=== PATIENT | female | born 1980 | race American Indian/Alaskan Native ===

== ENCOUNTER 2019-09-13 13:43 | Emergency (ER) | payer OTHER, MEDICAID, SELFPAY ==
[2019-09-13 13:53] VITALS: BP 138/82; PULSE 83; RESP 14; TEMP 36.6; O2SAT 100
--- NOTE | 2019-09-13 14:28 | ED_ITS ---
HPI - Back Pain/Injury <ABHIJIT Quiles - Last Filed: 09/13/19 18:47> General Chief Complaint: Back Pain/Injury Stated Complaint: Thinks Kidney Infection, Lower Back Pain Time Seen by Provider: 09/13/19 14:14 Source: patient History of Present Illness HPI Narrative: 39yo female presents to the emergency department for back pain over the past week. She states initially started on her right side, she started her menstrual cycle which lasted about 2 days. Once the ended, the pain has moved to the left side and she is worried about a kidney stone. She denies any history of kidney stones in the past. She does report she has arthritis in her back but states this pain feels different. She denies any fevers, chills, dysuria, vaginal discharge, abdominal pain, nausea, vomiting, diarrhea, or any other concerns. Related Data Allergies Allergy/AdvReac Type Severity Reaction Status Date / Time No Known Drug Allergies Allergy Verified 06/29/17 22:42 Review of Systems <ABHIJIT Quiles - Last Filed: 09/13/19 18:47> Review of Systems Narrative: REVIEW OF SYSTEMS: GENERAL: Denies fever, chills, malaise, or wt. loss. HENT: No head trauma. EYES: No loss of vision, double vision, eye pain, or irritation. CARDIOVASCULAR: No chest pain, palpitations, or orthopnea. RESPIRATORY: No shortness of breath or cough. GASTROINTESTINAL: Denies abdominal pain. GENITOURINARY: Reports back pain, see HPI. MUSCULOSKELETAL: No pain, weakness, or trauma. INTEGUMENTARY: No rash, lesions, or pruritus. NEURO: No numbness, tingling, memory loss, confusion, or headaches. PSYCH: No behavior or mood changes. Patient History <ABHIJIT Quiles - Last Filed: 09/13/19 18:47> Medical History No significant medical problems (Acute) Social History Smoking Status: Current every day smoker Smoking Status: Current every day smoker alcohol intake frequency: holidays/special occasions only Substance Use Type: does not use Exam <ABHIJIT Quiles - Last Filed: 09/13/19 18:47> Initial Vital Signs Initial Vital Signs: Vital Signs Temperature 97.8 F 09/13/19 13:53 Pulse Rate 83 09/13/19 13:53 Respiratory Rate 14 09/13/19 13:53 Blood Pressure 138/82 09/13/19 13:53 Pulse Oximetry 100 09/13/19 13:53 PHYSICAL EXAMINATION: GENERAL: Well groomed, alert, and cooperative. Answers questions promptly and appropriately. Vital signs noted. HENT: Normocephalic, atraumatic. Hearing intact. Oral mucosa is pink and moist. EYES: Conjunctiva pink, sclera white, no periorbital swelling. CARDIOVASCULAR: S1 and S2 sounds normal. Regular rate and rhythm, no murmurs, clicks, or bruits. No pedal edema. RESPIRATORY: Normal respiratory rate, trachea midline, airway patent. No stridor, nasal flaring or accessory muscle use. Lungs are clear in all [place] without wheeze, rhonchi, or crackles. GASTROINTESTINAL: Bowel sounds normoactive. Abdomen is soft and non-tender. No organomegaly, no palpable masses. GENITALURINARY: Left flank tenderness. MUSCULOSKELETAL: Normal gait and coordination. Equal tone and mass bilaterally. EXTREMITIES: CMS intact, no pedal edema. SKIN: Warm, dry, soft, appropriate color for ethnicity. No lesions, rashes, or wounds to visualized areas. NEURO: Alert and Oriented X 3. Good coordination. No ataxia, or sensory deficits, or cognitive issues. PSYCH: Appropriate affect and mood. <Vikas Rose MD - Last Filed: 09/13/19 18:53> Initial Vital Signs Initial Vital Signs: Vital Signs Temperature 97.8 F 09/13/19 13:53 Pulse Rate 83 09/13/19 13:53 Respiratory Rate 14 09/13/19 13:53 Blood Pressure 138/82 09/13/19 13:53 Pulse Oximetry 100 09/13/19 13:53 Course <ABHIJIT Quiles - Last Filed: 09/13/19 18:47> Course Course Narrative: Patient reports improvement after Toradol administration. Orders Ordered: ED Orders 09/13/19 14:10 Urine Microscopic Stat 09/13/19 14:26 CT kidney ureter bladder (KUB) Stat 09/13/19 15:10 Complete Blood Count AUTO DIFF Stat Comprehensive Metabolic Panel Stat Discontinued Medications Sodium Chloride (Normal Saline 0.9%) 1,000 mls @ 1,000 mls/hr IV BOLUS ONE Stop: 09/13/19 15:25 Last Infusion: 09/13/19 16:10 Dose: 0 mls/hr Documented by: Admin: 09/13/19 15:02 Dose: 1,000 mls/hr Documented by: MILA Ketorolac Tromethamine (Toradol) 30 mg IV NOW ONE Stop: 09/13/19 14:27 Last Admin: 09/13/19 15:01 Dose: 30 mg Documented by: MILA Vital Signs Vital signs: Vital Signs - 8 hr 09/13/19 13:53 09/13/19 16:07 Temperature 97.8 F Pulse Rate 83 58 L Respiratory Rate 14 14 Blood Pressure 138/82 121/75 Pulse Oximetry 100 100 <Vikas Rose MD - Last Filed: 09/13/19 18:53> Orders Ordered: ED Orders 09/13/19 14:10 Urine Microscopic Stat 09/13/19 14:26 CT kidney ureter bladder (KUB) Stat 09/13/19 15:10 Complete Blood Count AUTO DIFF Stat Comprehensive Metabolic Panel Stat Discontinued Medications Sodium Chloride (Normal Saline 0.9%) 1,000 mls @ 1,000 mls/hr IV BOLUS ONE Stop: 09/13/19 15:25 Last Infusion: 09/13/19 16:10 Dose: 0 mls/hr Documented by: Admin: 09/13/19 15:02 Dose: 1,000 mls/hr Documented by: MILA Ketorolac Tromethamine (Toradol) 30 mg IV NOW ONE Stop: 09/13/19 14:27 Last Admin: 09/13/19 15:01 Dose: 30 mg Documented by: MILA Vital Signs Vital signs: Vital Signs - 8 hr 09/13/19 13:53 09/13/19 16:07 Temperature 97.8 F Pulse Rate 83 58 L Respiratory Rate 14 14 Blood Pressure 138/82 121/75 Pulse Oximetry 100 100 MDM - Back Pain/Injury <ABHIJIT Quiles - Last Filed: 09/13/19 18:47> Medical Records Attestation: I reviewed the patient's medical records. Lab Data Attestation: I reviewed the patient's lab results. Result diagrams: 09/13/19 15:10 09/13/19 15:10 Labs: Lab Results 09/13/19 09/13/19 09/13/19 Range/Units 14:10 15:10 15:10 WBC 7.5 (4.5-11.0) X10^3/uL RBC 4.53 (4.0-5.2) X10^6/uL Hgb 14.1 (12.0-16.0) g/dL Hct 41.4 (36-46) % MCV 91.5 (80-100) fL MCH 31.3 (26-34) PG MCHC 34.2 (30-36) % RDW 13.0 (11.6-14.8) % Plt Count 258 (150-400) X10^3/uL Neut % (Auto) 59.1 (50-75) % Lymph % (Auto) 31.7 (25-40) % [place] % (Auto) 6.4 (3-14) % Eos % (Auto) 2.0 (2-4) % Baso % (Auto) 0.8 (0-2) % Neut # (Auto) 4400 (3388-5311) /uL Lymph # (Auto) 2400 (0802-7901) /uL [place] # (Auto) 500 (0-900) /uL Eos # (Auto) 100 (0-450) /uL Baso # (Auto) 100 (0-100) /uL Sodium 136 L (137-145) mmol/L Potassium 4.1 (3.4-5.1) mmol/L Chloride 107 (98-107) mmol/L Carbon Dioxide 22 (22-32) mmol/L BUN 12 (7-17) mg/dL Creatinine 0.70 (0.52-1.04) mg/dL Estimated GFR > 60.0 (>60) mL/min BUN/Creatinine Ratio 17.1 (6-22) Glucose 97 (70-100) mg/dL Calcium 9.1 (8.4-10.2) mg/dL Total Bilirubin 0.5 (0.2-1.3) mg/dL AST 22 (14-36) IU/L ALT 24 (<35) IU/L Alkaline Phosphatase 61 (38-126) U/L Total Protein 7.4 (6.3-8.2) g/dL Albumin 4.2 (3.5-5.0) g/dL Globulin 3.2 (1.7-4.1) g/dL Albumin/Globulin Ratio 1.3 (1.0-2.8) Urine RBC 1-5/hpf (0-5/HPF) Urine WBC None seen (0-5/HPF) Ur Squamous Epith Cells None seen (0-5/HPF) Urine Bacteria None seen (None) Ur Culture Indicated? Cult not indicated Point of Care Testing Test Results Negative Urine Dip Bedside Urine Glucose Negative Bedside Urine Bilirubin - Negative Bedside Urine Ketone - Negative Urine Specific [place] 1.010 Bedside Urine Occult Blood + Bedside Urine pH 6.0 Bedside Urine Protein - Negative Bedside Urine Urobilinogen - Negative Bedside Urine Nitrite - Negative Bedside Urine Leukocytes - Negative Esterase Imaging Data CT KUB: Radiologist's Impression: [address] [address] [address] Scan Report Signed Patient: Tomasa Martines RaJackelineR#: [id number] : 1980Acct:[id number] Age/Sex: 39 / FDate of Service: 09/13/19 Loc: ED Accession Number: [id number] Procedure: CT kidney ureter bladder (KUB) Ordering Provider: Amanda Pimentel PROCEDURE: CT KIDNEY URETER BLADDER (KUB) INDICATIONS: L flank pain, r/o kidney stone TECHNIQUE: Noncontrast 5 mm thick sections acquired from the diaphragms to the symphysis. 5 mm thick coronal and sagittal reformats were then performed. For radiation dose reduction, the following was used: automated exposure control, adjustment of mA and/or kV according to patient size. COMPARISON: None. FINDINGS: Image quality: Excellent. Lung bases: Lung bases are clear. Heart size is normal. Urinary system: Both kidneys are normal in size. No kidney stones. No hydronephrosis or perinephric fat stranding. Both ureters appear non-dilated throughout their expected courses. Bladder wall thickness is normal; no calcified bladder stones. Other solid organs: Liver is normal in size. Gallbladder is not enlarged or inflamed. Pancreas is normal in contours. Spleen is normal in size. No adrenal nodules. Peritoneum and bowel: The bowel loops are nondilated. The appendix is well visualized and normal. An expected amount of stool is seen within the colon. No free fluid, loculated fluid collection, or free air is evident. There is a small fat containing periumbilical hernia. Nodes and vessels: No retroperitoneal or mesenteric adenopathy by size criteria. Aorta and inferior vena cava are normal in caliber. Bones: No acute fracture or suspicious osseous lesion is evident. There appear to be moderate degenerative changes of the lower lumbar spine. Other pelvic soft tissues: No free pelvic fluid. No inguinal hernias or adenopathy. An intrauterine contraceptive device is positioned within the uterus. There is a s mall right ovarian cyst identified that measures up to approximately 2.5 cm, but not well characterized. The left ovary is not enlarged or adequately evaluated. IMPRESSION: 1. No obstructing or nonobstructing renal or ureteral calculi. 2. Small right ovarian cyst. 3. Normal appendix. 4. No bowel obstruction. Dictated by: Fransisco Pal M.D. on 09/13/2019 at 13:48 Approved by: Fransisco Pal M.D. on 09/13/2019 at 13:56 MDM Narrative Medical decision making narrative: 39-year-old female presenting to the emergency department for left flank pain. Differential includes ovarian cyst versus muscle strain. Patient did later report upon further evaluation that she has been driving for the past 2 days which may have contributed to back pain, she does have chronic back pain as well. Ovarian cysts seen on CT. No signs of renal calculi noted on imaging. Patient did have a small amount of blood in the urine, she was not having any urinary symptoms such as dysuria, fevers, or bladder irritation, thus, urine was sent for culture, she was notified she will receive a call in 1-2 days if bacteria is present on the culture. Patient was hemodynamically stable, well-appearing. She was encouraged to follow up with her PCP in ob/gyn nurse for further evaluation and treatment if symptoms continue. Less concern for acute abdominal etiology due to lack of findings on CT, lack of abdominal pain, no vomiting, and lack of systemic symptoms. Return precautions given for new or worsening symptoms. Patient agreed to plan of care verbalized understanding. She was offered muscle relaxers, declined at this time. <Vikas Rose MD - Last Filed: 09/13/19 18:53> Lab Data Labs: Lab Results 09/13/19 09/13/19 09/13/19 Range/Units 14:10 15:10 15:10 WBC 7.5 (4.5-11.0) X10^3/uL RBC 4.53 (4.0-5.2) X10^6/uL Hgb 14.1 (12.0-16.0) g/dL Hct 41.4 (36-46) % MCV 91.5 (80-100) fL MCH 31.3 (26-34) PG MCHC 34.2 (30-36) % RDW 13.0 (11.6-14.8) % Plt Count 258 (150-400) X10^3/uL Neut % (Auto) 59.1 (50-75) % Lymph % (Auto) 31.7 (25-40) % [place] % (Auto) 6.4 (3-14) % Eos % (Auto) 2.0 (2-4) % Baso % (Auto) 0.8 (0-2) % Neut # (Auto) 4400 (9081-2655) /uL Lymph # (Auto) 2400 (4763-2292) /uL [place] # (Auto) 500 (0-900) /uL Eos # (Auto) 100 (0-450) /uL Baso # (Auto) 100 (0-100) /uL Sodium 136 L (137-145) mmol/L Potassium 4.1 (3.4-5.1) mmol/L Chloride 107 (98-107) mmol/L Carbon Dioxide 22 (22-32) mmol/L BUN 12 (7-17) mg/dL Creatinine 0.70 (0.52-1.04) mg/dL Estimated GFR > 60.0 (>60) mL/min BUN/Creatinine Ratio 17.1 (6-22) Glucose 97 (70-100) mg/dL Calcium 9.1 (8.4-10.2) mg/dL Total Bilirubin 0.5 (0.2-1.3) mg/dL AST 22 (14-36) IU/L ALT 24 (<35) IU/L Alkaline Phosphatase 61 (38-126) U/L Total Protein 7.4 (6.3-8.2) g/dL Albumin 4.2 (3.5-5.0) g/dL Globulin 3.2 (1.7-4.1) g/dL Albumin/Globulin Ratio 1.3 (1.0-2.8) Urine RBC 1-5/hpf (0-5/HPF) Urine WBC None seen (0-5/HPF) Ur Squamous Epith Cells None seen (0-5/HPF) Urine Bacteria None seen (None) Ur Culture Indicated? Cult not indicated Point of Care Testing Test Results Negative Urine Dip Bedside Urine Glucose Negative Bedside Urine Bilirubin - Negative Bedside Urine Ketone - Negative Urine Specific [place] 1.010 Bedside Urine Occult Blood + Bedside Urine pH 6.0 Bedside Urine Protein - Negative Bedside Urine Urobilinogen - Negative Bedside Urine Nitrite - Negative Bedside Urine Leukocytes - Negative Esterase Discharge Plan Departure Patient Disposition: Home Clinical Impression: Back pain Qualifiers: Back pain location: low back pain Chronicity: unspecified Back pain laterality: left Sciatica presence: without sciatica Qualified Code(s): M54.5 - Low back pain Discharge Date/Time: 09/13/19 16:12 Instructions: DI for Low Back Pain Activity Restrictions/Additional Instructions: Thank you for entrusting me with your care today. As discussed, your CT is negative for any kidney stones, there is a small right ovarian cyst noted. I suspect your back pain may be caused by muscle strain and spasm. I recommend using ibuprofen as needed for pain, heat, gentle stretches, and going for slow walks to help relieve muscle tension. Please follow-up within your primary care provider in 1-2 weeks for further evaluation if symptoms continue. Please follow-up with your [employer] IN[employer]CTOR for further evaluation and treatment of ovarian cyst if symptoms continue. Return to the emergency department for any new or worsening symptoms such as severe pain, chest pain, shortness of breath, syncope, or any other concerns
[2019-09-13 14:32] LABS: Bacteria Urine None Seen; WBC Urine None Seen (0-5/HPF)
[2019-09-13] MEDS: KETOROLAC 60 MG/2 ML VIAL 30 MG IV (15:01)
[2019-09-13] MEDS: SODIUM CHLORIDE 0.9% 1,000 ML 1000 ML IV (15:02)
[2019-09-13 15:03] LABS: Culture Indicated Urine Cult Not Indicated; RBC Urine 1-5/HPF (0-5/HPF); Squamous Epithelial Cell Urine None Seen (0-5/HPF)
[2019-09-13 15:14] LABS: Add Manual Diff / Slide Review NO; Basophils Absolute Auto 100 /uL (0-100); Basophils Percent Auto 0.8 % (0-2); Eosinophils Absolute Auto 100 /uL (0-450); Hematocrit 41.4 % (36-46); Hemoglobin 14.1 g/dL (12.0-16.0); Lymphocytes Absolute Auto 2400 /uL (1100-4500); Lymphocytes Percent Auto 31.7 % (25-40); Mean Corpuscular HGB Conc 34.2 % (30-36); Mean Corpuscular Hemoglobin 31.3 PG (26-34); Mean Corpuscular Volume 91.5 fL (80-100); Monocytes Absolute Auto 500 /uL (0-900); Monocytes Percent Auto 6.4 % (3-14); Neutrophils Absolute Auto 4400 /uL (1500-7000); Neutrophils Percent Auto 59.1 % (50-75); Platelet Count 258 X10^3/uL (150-400); Red Blood Cell Count 4.53 X10^6/uL (4.0-5.2); White Blood Cell Count 7.5 X10^3/uL (4.5-11.0)
[2019-09-13 15:26] LABS: Alanine Aminotransferase 24 IU/L (<35); Albumin 4.2 g/dL (3.5-5.0); Albumin Globulin Ratio 1.3 (1.0-2.8); Alkaline Phosphatase 61 U/L (38-126); Aspartate Aminotransferase 22 IU/L (14-36); BUN Creatinine Ratio 17.1 (6-22); Bilirubin Total 0.5 mg/dL (0.2-1.3); Blood Urea Nitrogen 12 mg/dL (7-17); Calcium 9.1 mg/dL (8.4-10.2); Carbon Dioxide 22 mmol/L (22-32); Chloride 107 mmol/L (98-107); Estimated Glomerular Filt Rate > 60.0 mL/min (>60); Globulin 3.2 g/dL (1.7-4.1); Glucose 97 mg/dL (70-100); HEMOLYSIS < 15 (0-50); Potassium 4.1 mmol/L (3.4-5.1); Sodium 136 mmol/L (137-145); Total Protein 7.4 g/dL (6.3-8.2)
[2019-09-13 16:07] VITALS: BP 121/75; PULSE 58; RESP 14; O2SAT 100
== END 2019-09-13 16:12 | disposition home or self-care (01) ==
PROVIDERS: Emergency Medicine; Emergency Provider Nurse Practitioner
DX: M54.5 Low back pain (principal); N83.201 Unspecified ovarian cyst, right side; R31.9 Hematuria, unspecified
CPT/HCPCS: 36415; 74176; 80053; 81003; 81015; 81025; 85025; 96361; 96374; 99284; J1885

== ENCOUNTER 2019-09-25 20:18 | Emergency (ER) | payer MEDICAID, OTHER, SELFPAY ==
[2019-09-25 20:45] VITALS: BP 124/74; PULSE 72; RESP 18; TEMP 37; O2SAT 100; BMI 33.5
[2019-09-25 22:21] VITALS: BP 113/64; PULSE 60; O2SAT 100
[2019-09-25 22:30] VITALS: BP 121/76; PULSE 58; RESP 15; O2SAT 100
--- NOTE | 2019-09-25 22:34 | ED_ITS ---
HPI - Abdominal Pain General Chief Complaint: Abdominal Pain Stated Complaint: thinks ovarian cyst Time Seen by Provider: 09/25/19 21:20 Source: patient Mode of arrival: Family Vehicle Limitations: no limitations History of Present Illness HPI narrative: 39F daily smoker with history of UTIs and SI joint dysfunction presents with a few weeks of constant pain in lower pelvis. Her pain seems to improve when standing and worsens when sitting. She denies other provocation or palliation nor radiation. She's had no dysuria, frequency, or urgency. She denies vaginal bleeding or discharge. She recently had her IUD removed due to concern for it's possible contribution to the pain. She's had no runny nose, sore throat, chest pain or cough. She denies fever or chills. MD complaint: abdominal pain Onset (ago): week(s) Pain Consistency: constant Location: suprapubic Severity: moderate Quality: cramping Radiation: none Related Data Patient : No Previous Rx's Medication Instructions Recorded ketorolac 10 mg PO TID PRN #15 tab 09/25/19 Allergies Allergy/AdvReac Type Severity Reaction Status Date / Time No Known Drug Allergies Allergy Verified 09/25/19 20:52 Review of Systems Constitutional Constitutional: Denies chills, Denies fatigue, Denies fever(s), Denies frequent falls, Denies lethargy and Denies weakness Eyes Eyes: Denies change in vision, Denies eye discharge, Denies irritation and Denies loss of vision ENT Ears, Nose, Mouth, and Throat: Denies change in voice, Denies dizziness, Denies neck pain, Denies sore throat and Denies throat swelling Cardiovascular Cardiovascular: Denies chest pain, Denies irregular heart rhythm, Denies light headedness, Denies palpitations, Denies dyspnea, Denies dyspnea on exertion and Denies orthopnea Respiratory Respiratory: Denies cough, Denies dyspnea, Denies dyspnea on exertion and Denies wheezing Gastrointestinal Gastrointestinal: Denies abdominal pain, Denies change in bowel habits, Denies diarrhea, Denies nausea and Denies vomiting Genitourinary Comments: suprapubic pain Musculoskeletal Musculoskeletal: Denies neck pain and Denies numbness Integumentary/Breasts Skin/Breast: Denies pruritus, Denies erythema, Denies rash and Denies wounds Neurologic Neurologic: Denies behavioral changes, Denies confusion, Denies dizziness, Denies frequent falls, Denies loss of vision, Denies numbness and Denies weakness Psychiatric Psychiatric: Denies anxiety, Denies behavioral changes, Denies confusion, Denies depression, Denies homicidal ideation and Denies suicidal ideation Endocrine Endocrine: Denies fatigue, Denies flushing and Denies palpitations Hematologic/Lymphatic Hematologic/Lymphatic: Denies easy bruising Allergic/Immunologic Allergic/Immunologic: Denies urticaria, Denies throat swelling and Denies wheezing Patient History Medical History No significant medical problems (Acute) Social History Smoking Status: Current every day smoker Smoking Status: Current every day smoker tobacco type: cigarettes alcohol intake frequency: holidays/special occasions only Substance Use Type: does not use Exam Narrative Exam Narrative: GENERAL: [39] year old patient appears stated age. Well- nourished, well-developed patient, in mild distress. HEAD: Atraumatic. Normocephalic. EYES: Pupils equal round and reactive. Extraocular motions intact. No scleral icterus. No injection or drainage. ENT: Nose without bleeding, purulent drainage. Throat without erythema, tonsillar hypertrophy or exudate. Airway patent. NECK: Trachea midline. Non tender CARDIOVASCULAR: Regular rate and rhythm without murmurs, gallops, or rubs. RESPIRATORY: Clear to auscultation. Breath sounds equal bilaterally. No wheezes, rales, or rhonchi. GASTROINTESTINAL: Abdomen soft, tender in the suprapubic region, nondistended. EXTREMITIES: No edema or joint tenderness. BACK: Nontender without deformity or crepitance. No flank tenderness. NEURO: AOx3. SKIN: No rash or erythema of visible areas Initial Vital Signs Initial Vital Signs: Vital Signs Temperature 98.6 F 09/25/19 20:45 Pulse Rate 72 09/25/19 20:45 Respiratory Rate 18 09/25/19 20:45 Blood Pressure 124/74 09/25/19 20:45 Pulse Oximetry 100 09/25/19 20:45 Course Orders Ordered: ED Orders 09/25/19 22:36 Complete Blood Count AUTO DIFF Stat Comprehensive Metabolic Panel Stat Lipase Stat 09/25/19 22:54 US pelvic limited Stat 09/25/19 23:05 Test Urine Stat Urine Culture Stat Urine Microscopic Stat Discontinued Medications Hydrocodone Bitart/Acetaminophen (Vicodin 5/325 Prepack) 1 bottle MISC SEEINSTR ONE Stop: 09/25/19 23:57 Last Admin: 09/26/19 00:01 Dose: 1 bottle Documented by: YUE Sodium Chloride (Normal Saline 0.9%) 1,000 mls @ 150 mls/hr IV CONT SANTA Last Infusion: 09/26/19 00:02 Dose: 0 mls/hr Documented by: Admin: 09/25/19 22:50 Dose: 150 mls/hr Documented by: ALETA Ketorolac Tromethamine (Toradol) 15 mg IV NOW ONE Stop: 09/25/19 23:57 Last Admin: 09/26/19 00:01 Dose: 15 mg Documented by: YUE Vital Signs Vital signs: Vital Signs - 8 hr 09/25/19 20:45 09/25/19 22:21 09/25/19 22:30 Temperature 98.6 F Pulse Rate 72 60 58 L Respiratory Rate 18 15 Blood Pressure 124/74 113/64 121/76 Pulse Oximetry 100 100 100 09/25/19 23:00 09/25/19 23:30 09/26/19 00:00 Temperature Pulse Rate 58 L 70 60 Respiratory Rate 25 H 49 H 18 Blood Pressure Pulse Oximetry 100 100 MDM - Abdominal Pain Lab Data Result diagrams: 09/25/19 22:36 09/25/19 22:36 Labs: Lab Results 09/25/19 09/25/19 09/25/19 Range/Units 22:36 22:36 23:05 WBC 9.3 (4.5-11.0) X10^3/uL RBC 4.38 (4.0-5.2) X10^6/uL Hgb 13.5 (12.0-16.0) g/dL Hct 40.3 (36-46) % MCV 91.9 (80-100) fL MCH 30.8 (26-34) PG MCHC 33.5 (30-36) % RDW 13.0 (11.6-14.8) % Plt Count 266 (150-400) X10^3/uL Neut % (Auto) 54.0 (50-75) % Lymph % (Auto) 35.1 (25-40) % [place] % (Auto) 7.6 (3-14) % Eos % (Auto) 2.1 (2-4) % Baso % (Auto) 1.2 (0-2) % Neut # (Auto) 5000 (1141-1056) /uL Lymph # (Auto) 3300 (9753-4385) /uL [place] # (Auto) 700 (0-900) /uL Eos # (Auto) 200 (0-450) /uL Baso # (Auto) 100 (0-100) /uL Sodium 137 (137-145) mmol/L Potassium 3.9 (3.4-5.1) mmol/L Chloride 106 (98-107) mmol/L Carbon Dioxide 25 (22-32) mmol/L BUN 15 (7-17) mg/dL Creatinine 0.77 (0.52-1.04) mg/dL Estimated GFR > 60.0 (>60) mL/min BUN/Creatinine Ratio 19.5 (6-22) Glucose 96 (70-100) mg/dL Calcium 9.0 (8.4-10.2) mg/dL Total Bilirubin 0.5 (0.2-1.3) mg/dL AST 24 (14-36) IU/L ALT 28 (<35) IU/L Alkaline Phosphatase 57 (38-126) U/L Total Protein 7.1 (6.3-8.2) g/dL Albumin 4.1 (3.5-5.0) g/dL Globulin 3.0 (1.7-4.1) g/dL Albumin/Globulin Ratio 1.4 (1.0-2.8) Lipase 86 (23-300) U/L Urine RBC (0-5/HPF) Urine WBC (0-5/HPF) Ur Squamous Epith Cells (0-5/HPF) Urine Bacteria (None) Ur Culture Indicated? Urine Test Negative (Negative) 09/25/19 Range/Units 23:05 WBC (4.5-11.0) X10^3/uL RBC (4.0-5.2) X10^6/uL Hgb (12.0-16.0) g/dL Hct (36-46) % MCV (80-100) fL MCH (26-34) PG MCHC (30-36) % RDW (11.6-14.8) % Plt Count (150-400) X10^3/uL Neut % (Auto) (50-75) % Lymph % (Auto) (25-40) % [place] % (Auto) (3-14) % Eos % (Auto) (2-4) % Baso % (Auto) (0-2) % Neut # (Auto) (2951-6519) /uL Lymph # (Auto) (1702-2140) /uL [place] # (Auto) (0-900) /uL Eos # (Auto) (0-450) /uL Baso # (Auto) (0-100) /uL Sodium (137-145) mmol/L Potassium (3.4-5.1) mmol/L Chloride (98-107) mmol/L Carbon Dioxide (22-32) mmol/L BUN (7-17) mg/dL Creatinine (0.52-1.04) mg/dL Estimated GFR (>60) mL/min BUN/Creatinine Ratio (6-22) Glucose (70-100) mg/dL Calcium (8.4-10.2) mg/dL Total Bilirubin (0.2-1.3) mg/dL AST (14-36) IU/L ALT (<35) IU/L Alkaline Phosphatase (38-126) U/L Total Protein (6.3-8.2) g/dL Albumin (3.5-5.0) g/dL Globulin (1.7-4.1) g/dL Albumin/Globulin Ratio (1.0-2.8) Lipase (23-300) U/L Urine RBC 1-5/hpf (0-5/HPF) Urine WBC 1-5/hpf (0-5/HPF) Ur Squamous Epith Cells 1-5 /hpf (0-5/HPF) Urine Bacteria Many (>30) H (None) Ur Culture Indicated? Specimen cultured Urine Test (Negative) Point of care testing: Point of Care Testing Test Results Negative Urine Dip Bedside Urine Glucose Negative Bedside Urine Bilirubin - Negative Bedside Urine Ketone - Negative Urine Specific [place] 1.025 Bedside Urine Occult Blood + Bedside Urine pH 6.0 Bedside Urine Protein +/- 15 Bedside Urine Urobilinogen +/- 1mg Bedside Urine Nitrite - Negative Bedside Urine Leukocytes + 70 Esterase Imaging Data US - abdomen: Radiologist's Impression: adenomyosis Discharge Plan Departure Patient Disposition: Home Clinical Impression: Adenomyosis Discharge Date/Time: 09/26/19 00:02 Instructions: DI for Pelvic Pain Activity Restrictions/Additional Instructions: *You have been diagnosed with [pelvic pain likely a consequence of adenomyosis] *What to do: *Take medications as directed *Follow up with your primary care provider in 2-3 days, call for an appointment. Let them know you were seen in the Emergency Department and that we ask that you be seen in follow up *Return to ER if you should have any new, worsening or concerning symptoms Prescriptions: New ketorolac 10 mg tablet 10 mg PO TID PRN (Reason: pain) Qty: 15 RF: 0
[2019-09-25 22:45] LABS: Add Manual Diff / Slide Review NO; Basophils Absolute Auto 100 /uL (0-100); Basophils Percent Auto 1.2 % (0-2); Eosinophils Absolute Auto 200 /uL (0-450); Eosinophils Percent Auto 2.1 % (2-4); Hematocrit 40.3 % (36-46); Hemoglobin 13.5 g/dL (12.0-16.0); Lymphocytes Absolute Auto 3300 /uL (1100-4500); Lymphocytes Percent Auto 35.1 % (25-40); Mean Corpuscular HGB Conc 33.5 % (30-36); Mean Corpuscular Hemoglobin 30.8 PG (26-34); Mean Corpuscular Volume 91.9 fL (80-100); Monocytes Absolute Auto 700 /uL (0-900); Monocytes Percent Auto 7.6 % (3-14); Neutrophils Absolute Auto 5000 /uL (1500-7000); Platelet Count 266 X10^3/uL (150-400); Red Blood Cell Count 4.38 X10^6/uL (4.0-5.2); White Blood Cell Count 9.3 X10^3/uL (4.5-11.0)
[2019-09-25] MEDS: SODIUM CHLORIDE 0.9% 1,000 ML 150 ML IV (22:50)
--- NOTE | 2019-09-25 22:54 | DI.US.S_ITS ---
PROCEDURE: US PELVIC COMPLETE INDICATIONS: pelvic pain TECHNIQUE: Real-time transabdominal and endovaginal scanning was performed of the pelvic organs, with image documentation. COMPARISON: None. FINDINGS: Uterus: Uterus is normal in size at 10.2 x 5.1 x 6.4 cm. Endometrium measures 5.8 mm in combined thickness. Small nabothian cyst incidentally noted. Ovaries: Right ovary measures 2.9 x 1.2 x 2.2 centimeters. Right ovary is sonographically normal. Left ovary is not visualized and cannot be evaluated. Other: No free pelvic fluid. Limited scanning through the kidneys shows no hydronephrosis. IMPRESSION: 1. Uterus is sonographically normal. 2. Right ovary is sonographically normal. 3. Left ovary not visualized and cannot be evaluated. Dictated by: Maria D Dickinson MD, PhD on 09/26/2019 at 8:27 Approved by: Maria D Dickinson MD, PhD on 09/26/2019 at 8:29
[2019-09-25 23:00] VITALS: PULSE 58; RESP 25; O2SAT 100
[2019-09-25 23:01] LABS: Alanine Aminotransferase 28 IU/L (<35); Albumin 4.1 g/dL (3.5-5.0); Albumin Globulin Ratio 1.4 (1.0-2.8); Alkaline Phosphatase 57 U/L (38-126); Aspartate Aminotransferase 24 IU/L (14-36); BUN Creatinine Ratio 19.5 (6-22); Bilirubin Total 0.5 mg/dL (0.2-1.3); Blood Urea Nitrogen 15 mg/dL (7-17); Carbon Dioxide 25 mmol/L (22-32); Chloride 106 mmol/L (98-107); Estimated Glomerular Filt Rate > 60.0 mL/min (>60); Glucose 96 mg/dL (70-100); HEMOLYSIS 18 (0-50); Lipase 86 U/L (23-300); Potassium 3.9 mmol/L (3.4-5.1); Sodium 137 mmol/L (137-145); Total Protein 7.1 g/dL (6.3-8.2)
[2019-09-25 23:21] LABS: Pregnancy Test Urine Negative (Negative)
[2019-09-25 23:30] VITALS: PULSE 70; RESP 49
[2019-09-25 23:31] LABS: Bacteria Urine Many (>30); Culture Indicated Urine Specimen Cultured; RBC Urine 1-5/HPF (0-5/HPF); Squamous Epithelial Cell Urine 1-5 /HPF (0-5/HPF); WBC Urine 1-5/HPF (0-5/HPF)
[2019-09-26] VITALS: PULSE 60; RESP 18; O2SAT 100
[2019-09-26] MEDS: KETOROLAC 60 MG/2 ML VIAL 15 MG IV (00:01)
[2019-09-26] MEDS: HYDROCODONE/ACET 5/325 PREPACK 1 BOTTLE MISC (00:01)
== END 2019-09-26 00:02 | disposition home or self-care (01) ==
PROVIDERS: Emergency Provider Emergency Medicine
DX: N80.0 Endometriosis of uterus (principal)
CPT/HCPCS: 36415; 76830; 76856; 80053; 81003; 81015; 81025; 83690; 85025; 87086; 96361; 96374; 99284; J1885

== ENCOUNTER 2019-10-20 21:19 | Emergency (ER) | payer MEDICAID, OTHER, SELFPAY ==
[2019-10-20 21:32] VITALS: BP 143/93; PULSE 70; RESP 15; TEMP 37.1; O2SAT 99; BMI 34.8
--- NOTE | 2019-10-20 21:47 | ED.GENADULT ---
HPI - General Adult General Chief complaint: Abdominal Pain Stated complaint: stomach pain Time Seen by Provider: 10/20/19 21:37 Source: patient Mode of arrival: Ambulatory Limitations: no limitations History of Present Illness HPI narrative: 31-year-old female here for evaluation of abdominal pain and change in her stool character. Patient has been seen in the past for similar symptoms in this. Has had an ultrasound and CT scan. She has also seen obstetrics and gynecology professor provider who told her that she needed to see orthopedics secondary to prior history of back spasms. She states that her back spasms have improved. She has not followed up with her primary provider. She denies any urinary symptoms. She states the reason she is here today is because she had some ?white flecks? in her stool and when she looked it up online there was some concerns about things like ulcerative colitis/Crohn's disease. She states she does have lower abdominal cramping that improves with having a bowel movement. Related Data Previous Rx's Medication Instructions Recorded ketorolac 10 mg PO TID PRN #15 tab 09/25/19 desog-e.estradiol/e.estradiol 0.15 1 tab PO DAILY #84 tab 09/29/19 mg-0.02 mg(21)/e.estrad 0.01 mg(5) tablet Allergies Allergy/AdvReac Type Severity Reaction Status Date / Time naproxen Allergy Verified 10/20/19 21:32 Review of Systems Constitutional Constitutional: Denies fever(s) Cardiovascular Cardiovascular: Denies chest pain and Denies dyspnea Respiratory Respiratory: Denies dyspnea Gastrointestinal Gastrointestinal: Denies melena, Reports change in stool character, Reports cramping, Denies nausea and Denies vomiting Genitourinary Genitourinary: Denies dysuria Genitourinary: Denies dysuria and Denies vaginal discharge Musculoskeletal Musculoskeletal: Denies arthralgias and Denies myalgias Integumentary/Breasts Skin/Breast: Denies rash Neurologic Neurologic: Denies behavioral changes Psychiatric Psychiatric: Denies behavioral changes Hematologic/Lymphatic Hematologic/Lymphatic: Denies easy bleeding and Denies easy bruising Patient History Medical History No significant medical problems (Acute) Vaginal delivery (Inactive) Social History Smoking Status: Former smoker Smoking Status: Former smoker tobacco type: cigarettes alcohol intake frequency: holidays/special occasions only Substance Use Type: does not use Exam Initial Vital Signs Initial Vital Signs: Vital Signs Temperature 98.7 F 10/20/19 21:32 Pulse Rate 70 10/20/19 21:32 Respiratory Rate 15 10/20/19 21:32 Blood Pressure 143/93 H 10/20/19 21:32 Pulse Oximetry 99 10/20/19 21:32 Const General: cooperative, healthy appearing, comfortable and well developed Limitations: mental status not altered HENMT Head: normal to inspection and normocephalic Resp Effort & Inspection: normal respiratory effort Cardio Rate: regular rate GI Inspection: non-distended Skin Rashes: no rashes Neuro General: patient alert, patient awake and patient oriented x3 Cognition: normal cognition Speech: speech normal Extrem General: normal to inspection Psych Appearance: grossly normal and well kempt Course Orders Ordered: ED Orders 10/20/19 21:37 Urine Culture Stat Urine Microscopic Stat Vital Signs Vital signs: Vital Signs - 8 hr 10/20/19 21:32 Temperature 98.7 F Pulse Rate 70 Respiratory Rate 15 Blood Pressure 143/93 H Pulse Oximetry 99 Medical Decision Making Lab Data Lab results reviewed: Yes I reviewed the patient's lab results. Labs: Lab Results 10/20/19 Range/Units 21:37 Urine RBC 1-5/hpf (0-5/HPF) Urine WBC 1-5/hpf (0-5/HPF) Ur Squamous Epith Cells 1-5 /hpf (0-5/HPF) Urine Bacteria Many (>30) H (None) Ur Culture Indicated? Specimen cultured Point of Care Testing Test Results Negative Urine Dip Bedside Urine Glucose Negative Bedside Urine Bilirubin - Negative Bedside Urine Ketone - Negative Urine Specific [place] 1.020 Bedside Urine Occult Blood + Bedside Urine pH 7.0 Bedside Urine Protein - Negative Bedside Urine Urobilinogen +/- 1mg Bedside Urine Nitrite - Negative Bedside Urine Leukocytes + 70 Esterase Point of care testing: Point of Care Testing Test Results Negative Urine Dip Bedside Urine Glucose Negative Bedside Urine Bilirubin - Negative Bedside Urine Ketone - Negative Urine Specific [place] 1.020 Bedside Urine Occult Blood + Bedside Urine pH 7.0 Bedside Urine Protein - Negative Bedside Urine Urobilinogen +/- 1mg Bedside Urine Nitrite - Negative Bedside Urine Leukocytes + 70 Esterase MDM Narrative Medical decision making narrative: Patient denies urinary symptoms. Has had ongoing GI issues for several weeks/months. I feel based on her history and physical exam today that we can hold on any workup in the emergency department. I feel that labs be on helpful. I feel though CT scan would not be necessary and she has had these in the past. Do not feel an ultrasound would be helpful as well. I did inform the patient that she should talk with her primary doctor about following up with gastroenterology. She was given return precautions. She expressed understanding and agreement. Discharge Plan Departure Patient Disposition: Home Clinical Impression: Abdominal pain Qualifiers: Abdominal location: generalized Qualified Code(s): R10.84 - Generalized abdominal pain Discharge Date/Time: 10/20/19 22:00 Instructions: DI for Abdominal Pain-Adult Activity Restrictions/Additional Instructions: Recommend that you contact your primary doctor to discuss the indications for referral to see Gastroenterology. Return to the emergency department for any new or worsening symptoms Prescriptions: No Action desog-e.estradiol/e.estradiol [Kariva (28)] 0.15-0.02 mgx21 /0.01 mg x 5 tablet 1 tab PO DAILY Qty: 84 RF: 1 ketorolac 10 mg tablet 10 mg PO TID PRN (Reason: pain) Qty: 15 RF: 0 Referrals: Pili Waldron ARNP [Primary Care Provider] -
[2019-10-20 22:02] LABS: Bacteria Urine Many (>30); Culture Indicated Urine Specimen Cultured; RBC Urine 1-5/HPF (0-5/HPF); Squamous Epithelial Cell Urine 1-5 /HPF (0-5/HPF); WBC Urine 1-5/HPF (0-5/HPF)
== END 2019-10-20 22:00 | disposition home or self-care (01) ==
PROVIDERS: Emergency Provider Emergency Medicine; PCP Registered Nurse
DX: R10.84 Generalized abdominal pain (principal)
CPT/HCPCS: 81003; 81015; 81025; 87086; 99282